=== PATIENT | female | born 1955 | race Caucasian/White ===

== ENCOUNTER 2017-06-18 08:46 | Emergency (ER) | payer BC ==
[2017-06-18 08:52] VITALS: BMI 26.7
--- NOTE | 2017-06-18 09:16 | DR.CP ---
HPI - Time Seen Time seen: 09:15 - PCP Primary Care Physician: DR. DAVIDSON PAGE - HPI Comment HPI Comment: PAIN SUBSIDED SPONTANOUSLY. DENIES SIMILAR PAIN IN THE PAST. NO SOB OR WEAKNESS. NO URI SYMPTOMS. - Complaint Chief Complaint Doctor Comments: SUDDEN ONSET OF RT SIDED CHEST PRESSURE RADIATING TO RT NECK THAT LASTED LESS THAN 10 MINUTES THIS AM. Chief Complaint:: PT C/O AT AROUND 0650 HAD A PRESSURE TO HER RIGHT SIDE OF HER CHEST AND RIGHT NECK PAIN,, BUT IT HAS SENCE WENT AWAY.. Self Treatment fo Chief Complaint: PT DENIES ANY SOB AND SHE IS CALM AT THIS TIME . BR - Reviewed Nurses Notes Review: Yes - Source History Provided: Patient - Mode of Arrival Mode of Arrival: Ambulatory - Timing Onset of Chief Complaint: 06/18/17 Came on: Suddenly Pain: Resolved - Duration Duration: Since Onset Duration: Hours - Location Chest Pain Radiation Location: Neck - Context Cardiac Risk Factors: None History of: None Prehospital Care: None - Quality Quality: Pressure like - Severity Severity: Moderate - Modifying Factors Worsens: Nothing Impoves: Other - Associated Signs and Symptoms Associated Signs and Symptoms: None PMH - PMH Past Medical History: Yes Past Medical History: GERD, Hypothyroidism Past Medical History Comment: > CHOLESTEROL, Past Surgical History: Yes Past Surgical History Comment: CARPAL TUNNEL.. - Family History History of Family Medical Conditions: No - Social History Does patient currently use any type of tobacco product: No Have you used tobacco products in the last 12 months: No Type of Tobacco Use: None Does any household member use tobacco: No Alcohol Use: None Do you use any recreational Drugs:: No Lives With: Alone Lives Where: Home - infectious screening In the last 2 months have you had wt loss of >10#?: NO Have you had fever, night sweats or hemotysis?: No Have you traveled outside the country in the last 6 months?: No Isolation: Standard ROS - Review of Systems Constitutional: No Symptoms Reported Eyes: No Symptoms Reported ENTM: No Symptoms Reported Respiratoy: No Symptoms Reported Cardiovascular: Chest Pain Genitourinary: No Symptoms Reported Neurological: No Symptoms Reported Musculoskeletal: No Symptoms Reported Integumentary: No Symptoms Reported Hematologic/Lymphatic: No Symptoms Reported Endocrine: No Symptoms Reported All Other Systems: Reviewed and Negative PE - Vitals Vitals: Temperature 98.0 F Pulse Rate 77 Respiratory Rate 20 Blood Pressure [Left Arm] 155/82 Blood Pressure 171/89 O2 Sat by Pulse Oximetry 98 - General Limitations: No Limitations General Appearance: Alert - Head Head Exam: Normal Inspection - Eyes Eye exam: Normal Appearance, PERRL, EOMI. negative: Scleral Icterus, Conjunctival Injection - ENT ENT Exam: Normal External Ear Exam - Chest Chest Inspection: Symmetric Chest Wall Rise - Respiratory Respiratory Exam: Normal Lung Sounds Bilat Respiratory Exam: Bilateral Clear to Auscultation - Cardiovascular Cardiovascular Exam: Regular Rate, Normal Rhythm, Normal Heart Sounds - Abdominal Exam Abdominal Exam: Normal Inspection, Normal Bowel Sounds. negative: Tenderness - Extremities Extremities Exam: Normal Inspection - Back Back Exam: Normal Inspection - Neurologic Neurological Exam: Alert, Oriented X3 - Psychiatric Psychiatric Exam: Normal Affect, Normal Mood - Skin Skin Exam: Normal Color MDM - Additional Information Additional Information Obtained From: Family - Differential Diagnosis Differential Diagnosis: Angina, Gastritis, Myocardial Infarction, Pericarditis, Pneumonia, Pneumothorax, Pulmonary Embolus Course - Treatment Treatment: SEE ORDERS. - Education/Counseling Education/Counseling: Patient, Family, Education Educated On: Diagnosis, Needs for Follow Up ROR - Labs Reviewed Laboratory Results Reviewed?: Yes Result Diagrams: 06/18/17 09:28 06/18/17 09:28 Laboratory: WBC 5.1 X10^3/uL (3.6-10.0) 06/18/17 09:28 RBC 4.89 X10^6/uL (3.5-5.4) 06/18/17 09:28 Hgb 13.7 g/dL (12.0-16.0) 06/18/17 09:28 Hct 40.3 % (36.0-47.0) 06/18/17 09:28 MCV 82.5 fL (80.0-100.0) 06/18/17 09:28 MCH 27.9 pg (27.0-34.0) 06/18/17 09:28 MCHC 33.9 g/dL (33.0-35.0) 06/18/17 09:28 RDW 14.7 % (11.6-16.5) 06/18/17 09:28 Plt Count 204 X10^3/uL (150.0-450.0) 06/18/17 09:28 MPV 8.8 fL (7.4-11.0) 06/18/17 09: Neut % 69.5 % (42.0-75.0) 06/18/17: Lymph % 22.1 % (21.0-51.0) 06/18/17: Hancock % 6.4 % (0.0-13.0) 06/18/17: Eos % 1.5 % (0.9-2.9) 06/18/17 09: Baso % 0.5 % (0.2-1.0) 06/18/17 09: Neut # 3.5 x10^3/uL (2.2-4.8) 06/18/17: Lymph # 1.1 X10^3/uL (1.3-2.9) L 06/18/17: Hancock # 0.3 x10^3/uL (0.3-0.8) 06/18/17: Eos # 0.1 x10^3/uL (0.0-0.2) 06/18/17: Baso # 0.0 X10^3/uL (0.0-0.1) 06/18/17 09: Absolute Nucleated RBC 0.1 /100WBC 06/18/17 09: INR Target Range - 06/18/17: INR 1.03 (0.8-1.3) 06/18/17: PTT 28.3 SECONDS (22.9-36.5) 06/18/17 09: PTT Comment - 06/18/17 09: Sodium 142 mmol/L (136-145) 06/18/17 09: Corrected Sodium TNP 06/18/17 09: Potassium 3.8 mmol/L (3.5-5.1) 06/18/17 09: Chloride 106 mmol/L (98-107) 06/18/17 09: Carbon Dioxide 29.6 mmol/L (21-32) 06/18/17 09: BUN 16 mg/dL (7-18) 06/18/17 09: Creatinine 1.02 mg/dL (0.55-1.02) 06/18/17 09: Est GFR (MDRD) Af Amer > 60 (>60) 06/18/17 09:28 Est GFR (MDRD) Non-Af 58 (>60) L 06/18/17 09:28 Glucose 98 mg/dL (65-99) 06/18/17 09:28 Calcium 8.7 mg/dL (8.5-10.1) 06/18/17 09:28 Corrected Calcium TNP 06/18/17 09:28 Total Bilirubin 0.50 mg/dL (0.2-1.0) 06/18/17 09:28 AST 23 Units/L (15-37) 06/18/17 09:28 ALT 27 Units/L (12-78) 06/18/17 09:28 Alkaline Phosphatase 87 Units/L (46-116) 06/18/17 09:28 Creatine Kinase 91 Units/L (26-192) 06/18/17 09:28 CK-MB (CK-2) 1.2 ng/mL (0-4.0) 06/18/17 09:28 CK/CKMB % Calc 1.3 % (<4) 06/18/17 09:28 Troponin I < 0.02 ng/mL (0-1.5) 06/18/17 09:28 Total Protein 7.2 g/dL (6.4-8.2) 06/18/17 09:28 Albumin 4.2 g/dL (3.4-5.0) 06/18/17 09:28 Globulin 3.0 g/dL (2.5-4.5) 06/18/17 09:28 Albumin/Globulin Ratio 1.4 Ratio (1.1-2.1) 06/18/17 09:28 - XRAY XRAY Findings: REPORT DISCUSS WITH PATIENT AND HER FAMILY. - EKG Rhythm: NSR - Diagnosis Discharge Problem: Chest pain - Discharge Plan Disposition: 01 HOME, SELF-CARE Condition: Stable - Follow ups/Referrals Follow ups/Referrals: LETY CASTELLANOS [Primary Care Provider] - 06/19/17 - Instructions Instructions: Chest Pain Observation Additional Instructions: RETURN TO ED IF WORSE. BP CHECK DAILY AND CHART AND TAKE TO YOUR DOCTOR.
[2017-06-18 09:41] LABS: BASOPHILS % (AUTO) 0.5 % (0.2-1.0); EOSINOPHILS # (AUTO) 0.1 x10^3/uL (0.0-0.2); EOSINOPHILS % (AUTO) 1.5 % (0.9-2.9); HEMATOCRIT 40.3 % (36.0-47.0); HEMOGLOBIN 13.7 g/dL (12.0-16.0); LYMPHOCYTES # (AUTO) 1.1 X10^3/uL (1.3-2.9); LYMPHOCYTES % (AUTO) 22.1 % (21.0-51.0); MEAN CORPUSCULAR HEMOGLOBIN 27.9 pg (27.0-34.0); MEAN CORPUSCULAR HGB CONC 33.9 g/dL (33.0-35.0); MEAN CORPUSCULAR VOLUME 82.5 fL (80.0-100.0); MEAN PLATELET VOLUME 8.8 fL (7.4-11.0); MONOCYTES # (AUTO) 0.3 x10^3/uL (0.3-0.8); MONOCYTES % (AUTO) 6.4 % (0.0-13.0); NEUTROPHILS # (AUTO) 3.5 x10^3/uL (2.2-4.8); NEUTROPHILS % (AUTO) 69.5 % (42.0-75.0); PLATELET COUNT 204 X10^3/uL (150.0-450.0); RED BLOOD COUNT 4.89 X10^6/uL (3.5-5.4); RED CELL DISTRIBUTION WIDTH 14.7 % (11.6-16.5); WHITE BLOOD COUNT 5.1 X10^3/uL (3.6-10.0)
--- NOTE | 2017-06-18 09:43 | RAD ---
Indication: Chest pain Exam: Portable chest Comparison: None. Findings: The heart is normal. The pulmonary vessels are normal. No consolidation or effusion is seen . The bones are intact. Impression: No acute cardiopulmonary abnormality. Reported By:
[2017-06-18 10:04] LABS: BLOOD UREA NITROGEN 16 mg/dL (7-18); CALCIUM 8.7 mg/dL (8.5-10.1); CARBON DIOXIDE 29.6 mmol/L (21-32); CHLORIDE 106 mmol/L (98-107); CREATININE 1.02 mg/dL (0.55-1.02); SODIUM 142 mmol/L (136-145); TROPONIN I < 0.02 ng/mL (0-1.5); eGFR BLACK RACES > 60 (>60); eGFR NON BLACK RACES 58 (>60)
[2017-06-18 10:06] LABS: ALANINE AMINOTRANSFERASE 27 Units/L (12-78); ALBUMIN 4.2 g/dL (3.4-5.0); ALKALINE PHOSPHATASE 87 Units/L (46-116); ASPARTATE AMINO TRANSFERASE 23 Units/L (15-37); CKMB % 1.3 % (<4); CREATINE KINASE 91 Units/L (26-192); CREATINE KINASE MB 1.2 ng/mL (0-4.0); TOTAL PROTEIN 7.2 g/dL (6.4-8.2)
[2017-06-18 10:49] VITALS: BP 155/82
== END 2017-06-18 10:45 | disposition home or self-care (01) ==
LOC: ER 08:58
DX: R07.89 Other chest pain (principal)
CPT/HCPCS: 36415; 71045; 80053; 82550; 82553; 84484; 85025; 85610; 85730; 93005; 93010; 99282; 99283; 99284